=== PATIENT | male | born 1990 | race Hispanic/Latino ===

== ENCOUNTER 2018-02-26 20:34 | Emergency (ER) | payer SELFPAY ==
[2018-02-26] MEDS ORDERED: HYDROCODONE/APAP 5/325 MG TAB ONE (21:26)
--- NOTE | 2018-02-26 21:52 | RAD REPORT ---
EXAM DESCRIPTION: CT - CTHCSPWOC - 02/26/2018 9:33 pm CLINICAL HISTORY: Slip and fall, head, face and neck injury COMPARISON: None. TECHNIQUE: Axial 5 mm thick images of the head were obtained. Axial 2 mm thick images of the cervic al spine were obtained with sagittal and coronal reconstruction images generated and reviewed. All CT scans are performed using dose optimization technique as appropriate and may include automated exposure control or mA/KV adjustment according to patient size. FINDINGS: No intracranial hemorrhage, mass, edema or acute intracranial finding. Ventricles are norm al. No extra-axial fluid collections. Mastoid air cells are clear. Facial bones, orbits and sinuses a re separately detailed. Cervical body height and alignment are normal. No disk space narrowing. No fracture or acute bony abn ormality. No paraspinal mass or hematoma. IMPRESSION: Negative CT head examination for acute or significant finding. Negative CT cervical spine examination for acute or significant finding. Facial bones, orbits and sinuses are separately detailed.
--- NOTE | 2018-02-26 21:55 | RAD REPORT ---
EXAM DESCRIPTION: CT - Facial Bones W/ Mpr - 02/26/2018 9:32 pm CLINICAL HISTORY: Slip and fall, right-sided facial trauma COMPARISON: None. TECHNIQUE: Axial 2 millimeter thick images of the facial bones were obtained with sagittal and coron al reconstruction imaging. All CT scans are performed using dose optimization technique as appropriate and may include automated exposure control or mA/KV adjustment according to patient size. FINDINGS: No mandible fracture is identified. Condyles are normally positioned. TM joints have a nor mal appearance. Mastoid air cells are clear. No skull base fracture. No air-fluid level in the paranasal sinuses. Fracture is present in the midportion of the right zygomatic arch. Posterior arch is depressed 5 mm a t the fracture site. Anterior arch attachment of the maxilla is intact. There is a fracture of the po sterior margin of the arch. No sinus wall or orbital wall fracture identified. There is left deviatio n of the nasal septum. No globe or orbital content abnormality seen. Right-side edema and contusion changes are present. No foreign body identified. IMPRESSION: Fracture is present in the midportion of the right zygomatic arch. Posterior arch at the fracture site is depressed 5 mm. There is a nondisplaced fracture at the posterior attachment of the arch. No other facial fractures seen.
--- NOTE | 2018-02-26 22:49 | EDPHYS ---
Physician Documentation [facility] Name: Hasmukh Singh Age: 28 yrs Sex: Male : 1990 Arrival Date: 02/26/2018 Time: 20:37 Bed 8 Private MD: None, None ED Physician Mikael Tristan HPI: 02/26 21:13 This 28 yrs old Male presents to ER via Ambulatory with complaints of cp Fainting, Facial Injury. 21:13 Details of fall: The patient fell from an upright position, slip and fall, and struck a cp concrete surface. 21:13 Onset: The symptoms/episode began/occurred just prior to arrival. Associated injuries: cp The patient sustained injury to the head, abrasion, pain, swelling, tenderness. Severity of symptoms: in the emergency department the symptoms are unchanged. Historical: - Allergies: 20:53 No Known Allergies; rr5 - Home Meds: 20:53 None [Active]; rr5 - PMHx: 20:53 None; rr5 - PSHx: 20:53 None; rr5 - Immunization history:: Adult Immunizations not up to date, Flu vaccine is not up to date. - Social history:: Smoking status: Patient/guardian denies using tobacco, Patient/guardian denies using alcohol, street drugs. - Ebola Screening: : Patient negative for fever greater than or equal to 101.5 degrees Fahrenheit, and additional compatible Ebola Virus Disease symptoms Patient denies exposure to infectious person Patient denies travel to an Ebola-affected area in the 21 days before illness onset. ROS: 21:20 Constitutional: Negative for body aches, chills, fever, poor PO intake. cp 21:20 Eyes: Negative for injury, pain, redness, and discharge. cp 21:20 ENT: Negative for drainage from ear(s), ear pain, sore throat, difficulty swallowing, difficulty handling secretions. 21:20 Neck: Negative for pain with movement, pain at rest, stiffness. 21:20 Cardiovascular: Negative for chest pain, edema, palpitations. 21:20 Respiratory: Negative for cough, shortness of breath, wheezing. 21:20 Abdomen/GI: Negative for abdominal pain, nausea, vomiting, and diarrhea. 21:20 Back: Negative for pain at rest, pain with movement, radiated pain. 21:20 Neuro: Positive for headache, loss of consciousness, Negative for altered mental status, numbness, seizure activity, syncope, near syncope, weakness. 21:20 All other systems are negative. Exam: 21:27 Constitutional: The patient appears in no acute distress, alert, awake, cp non-diaphoretic, non-toxic, well developed, well nourished. 21:27 Head/face: Noted is abrasion(s), that are mild, of the right zygomatic area, swelling, cp that is mild, of the right zygomatic area, tenderness, that is moderate, of the right zygomatic area. 21:27 Eyes: Pupils: equal, round, and reactive to light and accomodation, Extraocular movements: intact throughout, Conjunctiva: normal, no exudate, no injection, Sclera: no appreciated abnormality, Lids and lashes: appear normal, bilaterally. 21:27 ENT: External ear(s): are unremarkable, Ear canal(s): are normal, clear, TM's: dullness, bilaterally, Nose: is normal, Mouth: Lips: moist, Oral mucosa: pink and intact, moist, Posterior pharynx: is normal, airway is patent, no erythema, no exudate, Voice: is normal. 21:27 Neck: C-spine: C-collar placed in ED, vertebral tenderness, that is mild, appreciated at C2 and C3, ROM/movement: limited range of motion, is not appreciated, nuchal rigidity, is not appreciated. 21:27 Chest/axilla: Inspection: normal, Palpation: is normal, no crepitus, no tenderness. 21:27 Cardiovascular: Rate: normal, Rhythm: regular. 21:27 Respiratory: the patient does not display signs of respiratory distress, Respirations: normal, no use of accessory muscles, no retractions, no splinting, no tachypnea, labored breathing, is not present, Breath sounds: are clear throughout, no decreased breath sounds, no stridor, no wheezing. 21:27 Abdomen/GI: Inspection: abdomen appears normal, Palpation: abdomen is soft and non-tender, in all quadrants. 21:27 Back: pain, is absent, ROM is normal. 21:27 Skin: cellulitis, is not appreciated, no rash present. 21:27 Neuro: Orientation: to person, place \T\ time. Mentation: is normal, Cerebellar function: is grossly normal, Motor: is normal, Sensation: is normal, Gait: is steady, at a normal pace, without difficulty. Vital Signs: 20:53 BP 136 / 84; Pulse 70; Resp 16; Temp 98.9; Pulse Ox 99% on R/A; Pain 8/10; rr5 20:56 Weight 83.01 kg; Height 5 ft. 9 in. (175.26 cm); rr5 22:00 BP 131 / 75; Pulse 75; Resp 17; Pulse Ox 99% on R/A; rr5 23:00 BP 121 / 65; Pulse 70; Resp 17; Pulse Ox 98% ; rr5 23:30 BP 123 / 69; Pulse 79; Resp 17; Pulse Ox 99% on R/A; rr5 20:56 Body Mass Index 27.02 (83.01 kg, 175.26 cm) rr5 [place] Coma Score: 20:56 Eye Response: spontaneous(4). Verbal Response: oriented(5). Motor Response: obeys rr5 commands(6). Total: 15. Trauma Score (Adult): 20:48 Eye Response: spontaneous(1); Verbal Response: oriented(1); Motor Response: obeys rr5 commands(2); Systolic BP: > 89 mm Hg(4); Respiratory Rate: 10 to 29 per min(4); [place] Score: 15; Trauma Score: 12 MDM: 20:54 Patient medically screened. cp 21:00 Differential diagnosis: closed head injury, contusion, fracture, laceration, multiple cp trauma, assault. 22:46 Data reviewed: vital signs, nurses notes, radiologic studies, CT scan. Counseling: I cp had a detailed discussion with the patient and/or guardian regarding: the historical points, exam findings, and any diagnostic results supporting the discharge/admit diagnosis, radiology results, the need for outpatient follow up, maxillary facial surgeon, to return to the emergency department if symptoms worsen or persist or if there are any questions or concerns that arise at home. Response to treatment: the patient's symptoms have markedly improved after treatment. 02/26 21:15 Order name: CT Head C Spine; Complete Time: 22:31 cp 02/26 21:15 Order name: CT Facial Bones W/O Con; Complete Time: 22:31 cp 02/26 21:15 Order name: C-Collar; Complete Time: 21:17 cp Administered Medications: 21:18 Drug: HYDROcodone-acetaminophen 5 mg-325 mg 1 tabs Route: PO; rr5 23:30 Follow up: Response: No adverse reaction rr5 Disposition: 02/27 00:10 Chart complete. cp 06:20 Co-signature as Attending Physician, Mikael Tristan MD Available for consultation at ps1 all times. . Disposition: 02/26/18 22:48 Discharged to Home. Impression: Zygomatic fracture, unspecified - Right. - Condition is Stable. - Discharge Instructions: Zygoma Fracture. - Prescriptions for Tylenol- Codeine #3 300-30 mg Oral Tablet - take 2 tablets by ORAL route every 6 hours As needed; 20 tablet. Augmentin 875- 125 mg Oral Tablet - take 1 tablet by ORAL route every 12 hours for 10 days; 20 tablet. - Medication Reconciliation Form, Thank You Letter, Antibiotic Education, Prescription Opioid Use, Work release form, Family Work Release form. - Follow up: Julio Marino DDS; When: 2 - 3 days; Reason: Recheck today's complaints. - Problem is new. - Symptoms have improved. Signatures: Dispatcher [employer] EDMS Alexx Ludwig PA PA cp Mikael Tristan MD MD ps1 Lan Fitzgerald RN RN rr5 Corrections: (The following items were deleted from the chart) 02/26 23:59 22:48 02/26/2018 22:48 Discharged to Home. Impression: Zygomatic fracture, unspecified rr5 - Right. Condition is Stable. Forms are Medication Reconciliation Form, Thank You Letter, Antibiotic Education, Prescription Opioid Use. Follow up: Julio Marino; When: 2 - 3 days; Reason: Recheck today's complaints. Problem is new. Symptoms have improved. cp
--- NOTE | 2018-02-26 22:49 | ER ---
Nurse's Notes [facility] Name: Hasmukh Singh Age: 28 yrs Sex: Male : 1990 Arrival Date: 02/26/2018 Time: 20:37 Bed 8 Private MD: None, None Diagnosis: Zygomatic fracture, unspecified-Right Presentation: 02/26 20:48 Presenting complaint: Patient states: slip and hit head on the floor while getting out rr5 of the car. LOC 2-3 minutes as claimed. positive dizziness headache pain score 8/10 abrasion right side of cheek noted negative for vomiting. Transition of care: patient was not received from another setting of care. Onset of symptoms was February 26, 2018 at 20:15. Risk Assessment: Do you want to hurt yourself or someone else? Patient reports no desire to harm self or others. Initial Sepsis Screen: Does the patient meet any 2 criteria? No. Patient's initial sepsis screen is negative. Does the patient have a suspected source of infection? No. Patient's initial sepsis screen is negative. Care prior to arrival: None. 20:48 Method Of Arrival: Ambulatory rr5 20:48 Acuity: BRITTNEY 3 rr5 20:50 Mechanism of Injury: No Mechanism of Injury. rr5 Triage Assessment: 20:53 General: Appears in no apparent distress. comfortable, Behavior is calm, cooperative. rr5 Pain: Complains of pain in head Pain does not radiate. Pain currently is 8 out of 10 on a pain scale. Quality of pain is described as aching, Pain began suddenly, Is intermittent. EENT: No signs and/or symptoms were reported regarding the EENT system. Neuro: Level of Consciousness is awake, alert, obeys commands, Oriented to person, place, time, situation, Moves all extremities. Full function Pupils are PERRLA, Reports headache. Cardiovascular: Capillary refill < 3 seconds Patient's skin is warm and dry. Respiratory: Airway is patent Respiratory effort is even, unlabored, Respiratory pattern is regular, symmetrical. GI: No signs and/or symptoms were reported involving the gastrointestinal system. : No signs and/or symptoms were reported regarding the genitourinary system. Derm: Wound noted right cheek. Musculoskeletal: No signs and/or symptoms reported regarding the musculoskeletal system. Historical: - Allergies: 20:53 No Known Allergies; rr5 - Home Meds: 20:53 None [Active]; rr5 - PMHx: 20:53 None; rr5 - PSHx: 20:53 None; rr5 - Immunization history:: Adult Immunizations not up to date, Flu vaccine is not up to date. - Social history:: Smoking status: Patient/guardian denies using tobacco, Patient/guardian denies using alcohol, street drugs. - Ebola Screening: : Patient negative for fever greater than or equal to 101.5 degrees Fahrenheit, and additional compatible Ebola Virus Disease symptoms Patient denies exposure to infectious person Patient denies travel to an Ebola-affected area in the 21 days before illness onset. Screenin:20 Abuse screen: Denies threats or abuse. Denies injuries from another. Nutritional rr5 screening: No deficits noted. Tuberculosis screening: No symptoms or risk factors identified. Fall Risk Fall in past 12 months (25 points). [place] Fall Scale indicates Low Risk Score (25-44 pts). Fall prevention measures have been instituted. Side Rails Up X 2 Frequent Obs/Assesments occuring Family Present and informed to notify staff if they need to leave bedside As available Patient and Family Educated on Fall Prevention Program and strategies. Primary Survey: 20:48 A: Airway: patent. Breathing/Chest: Respiratory pattern: regular, Respiratory effort: rr5 spontaneous. Circulation: Cardiac rhythm: sinus rhythm. Disability Alert. 22:00 Reassessment Breathing/Chest Respiratory pattern Regular Respiratory effort Spontaneous rr5 Circulation Heart rhythm Sinus rhythm Heart tones Present Pulses Palpable Disability Alert. 23:00 Reassessment Airway Airway Patent Breathing/Chest Respiratory pattern Regular rr5 Respiratory effort Spontaneous Circulation Heart rhythm Sinus rhythm Heart tones Present Pulses Palpable Disability Alert. Secondary Survey: 20:48 HEENT: No deficits noted. Gastrointestinal: No deficits noted. : No deficits noted. rr5 Musculoskeletal: No signs and/or symptoms reported regarding the musculoskeletal system. Injury Description: Abrasion sustained to right cheek. Assessment: 20:57 Reassessment: see triage notes. rr5 21:35 Reassessment: Patient appears in no apparent distress at this time. Patient and/or rr5 family updated on plan of care and expected duration. Pain level reassessed. Patient is alert, oriented x 3, equal unlabored respirations, skin warm/dry/pink. awaiting for report. 22:40 Reassessment: Patient appears in no apparent distress at this time. Patient and/or rr5 family updated on plan of care and expected duration. Pain level reassessed. Patient states feeling better. 23:00 Reassessment: c- Collar removed. rr5 23:30 Reassessment: no complaints made discharge instruction explained with no question ask. rr5 Vital Signs: 20:53 BP 136 / 84; Pulse 70; Resp 16; Temp 98.9; Pulse Ox 99% on R/A; Pain 8/10; rr5 20:56 Weight 83.01 kg; Height 5 ft. 9 in. (175.26 cm); rr5 22:00 BP 131 / 75; Pulse 75; Resp 17; Pulse Ox 99% on R/A; rr5 23:00 BP 121 / 65; Pulse 70; Resp 17; Pulse Ox 98% ; rr5 23:30 BP 123 / 69; Pulse 79; Resp 17; Pulse Ox 99% on R/A; rr5 20:56 Body Mass Index 27.02 (83.01 kg, 175.26 cm) rr5 [place] Coma Score: 20:56 Eye Response: spontaneous(4). Verbal Response: oriented(5). Motor Response: obeys rr5 commands(6). Total: 15. Trauma Score (Adult): 20:48 Eye Response: spontaneous(1); Verbal Response: oriented(1); Motor Response: obeys rr5 commands(2); Systolic BP: > 89 mm Hg(4); Respiratory Rate: 10 to 29 per min(4); [place] Score: 15; Trauma Score: 12 ED Course: 20:37 Patient arrived in ED. mr 20:38 None, None is Private Physician. mr 20:47 Lan Fitzgerald, RN is Primary Nurse. rr5 20:48 Patient maintains SpO2 saturation greater than 95% on room air. rr5 20:52 Triage completed. rr5 20:53 Alexx Ludwig PA is PHCP. cp 20:53 Mikael Tristan MD is Attending Physician. cp 21:00 Patient has correct armband on for positive identification. Bed in low position. Call rr5 light in reach. Side rails up X 1. Pulse ox on. NIBP on. 21:21 Rigid cervical collar applied. rr5 21:33 CT Head C Spine In Process Unspecified. EDMS 21:33 CT Facial Bones W/O Con In Process Unspecified. EDMS 22:47 Julio Marino DDS is Referral Physician. cp 23:30 No provider procedures requiring assistance completed. Patient did not have IV access rr5 during this emergency room visit. Administered Medications: 21:18 Drug: HYDROcodone-acetaminophen 5 mg-325 mg 1 tabs Route: PO; rr5 23:30 Follow up: Response: No adverse reaction rr5 Outcome: 21:30 Patient's length of stay was not longer than 2 hours. rr5 22:48 Discharge ordered by MD. may 23:44 Discharged to home ambulatory, with significant other. nixon 23:44 Condition: improved 23:44 Instructed on discharge instructions, follow up and referral plans. medication usage, Demonstrated understanding of instructions, follow-up care, medications, Prescriptions given X 2. 23:59 Patient left the ED. rr5 Signatures: Dispatcher [employer] EDCT Delia Patricia Alexx Gracia PA PA cp Antunez, Elena, RN RN Lan Hanson RN RN rr5
== END 2018-02-26 23:59 | disposition home or self-care (01) ==
LOC: ER 20:34
DX: S02.40EA Zygomatic fracture, right side, initial encounter for closed fracture (principal); W01.198A Fall on same level from slipping, tripping and stumbling with subsequent striking against other object, initial encounter; Y93.89 Activity, other specified; Y92.9 Unspecified place or not applicable
CPT/HCPCS: 70450; 70486; 72125; 76377; 99284